=== PATIENT | male | born 1970 | race Two or more races ===

== ENCOUNTER 2017-10-20 10:27 | Inpatient (IN) | payer OTHER ==
[~2017-10-20] VITALS: Ht 182.9 cm; Wt 151.0 kg
--- NOTE | 2017-10-20 11:00 | NUR ---
WOKE UP WITH A CHEST PAIN AT 4AM, SENT BY DR AMIN, NO CHEST PAIN AT THIS MOMENT, NAD NOTED, VSS, RESP EVEN AND UNLABORED, AT BS.
--- NOTE | 2017-10-20 11:20 | NUR ---
XRAY AT BS
[2017-10-20 11:25] LABS: BASOPHILS # (AUTO) 0.1 /CMM (0.0-0.2); BASOPHILS % (AUTO) 0.8 % (0.0-2.0); EOSINOPHILS % (AUTO) 0.4 % (0.0-6.0); HEMATOCRIT 47 % (39-51); HEMOGLOBIN 16.3 g/dL (13.5-17.5); LYMPHOCYTES # (AUTO) 2.3 /CMM (0.8-4.8); LYMPHOCYTES % (AUTO) 25.7 % (20.0-44.0); MEAN CORPUSCULAR HEMOGLOBIN 31 PG (26.0-33.0); MEAN CORPUSCULAR HGB CONC 35 g/dl (31.0-36.0); MEAN CORPUSCULAR VOLUME 88 fL (80-96); MONOCYTES # (AUTO) 0.5 /CMM (0.1-1.30); MONOCYTES % (AUTO) 5.9 % (2.0-12.0); NEUTROPHILS # (AUTO) 6.1 /CMM (1.8-8.9); NEUTROPHILS % (AUTO) 67.2 % (43.0-81.0); PLATELET COUNT (AUTO) 174 /CMM (150-450); RED BLOOD CELL COUNT(AUTO) 5.35 MIL/uL (4.5-6.0)
[2017-10-20] MEDS ORDERED: ASPIRIN 81 MG TAB.CHEW PO ONE (11:30)
[2017-10-20 11:36] LABS: ALANINE AMINOTRANSFERASE 40 U/L (12-78); ALBUMIN 3.6 g/dL (3.4-5.0); ALKALINE PHOSPHATASE 61 U/L (46-116); ASPARTATE AMINOTRANSFERASE 28 U/L (15-37); BILIRUBIN,DIRECT 0.1 mg/dL (0.0-0.2); BILIRUBIN,TOTAL 0.7 mg/dL (0.2-1.0); CALCIUM, SERUM 8.8 mg/dL (8.5-10.1); CARBON DIOXIDE 24 mmol/L (21-32); CREATININE 0.8 mg/dL (0.6-1.3); GLUCOSE 100 mg/dL (74-106); TOTAL PROTEIN, SERUM 7.3 g/dL (6.4-8.2); UREA NITROGEN, BLOOD 9 mg/dL (7-18)
[2017-10-20 11:38] LABS: TROPONIN I < 0.017 ng/mL (0.00-0.056)
[2017-10-20 11:41] LABS: INR 0.94 (0.87-1.13); PROTHROMBIN TIME 9.8 SECS (9.5-12.7)
[2017-10-20] MEDS ORDERED: ASPIRIN 81 MG TAB.CHEW ONE (11:43)
[2017-10-20 11:50] LABS: CHLORIDE 106 mmol/L (98-107); POTASSIUM 4.1 mmol/L (3.5-5.1); SODIUM SERUM 139 mmol/L (136-145)
--- NOTE | 2017-10-20 12:19 | NUR ---
PAGED EPIC FOR PANEL - DR YU
--- NOTE | 2017-10-20 12:27 | NUR ---
CALLED NURSE SUP FOR TELE BED
[2017-10-20] MEDS: NITROGLYCERIN PACKET 1 GM PACKET TOP SCH ×2 (13:00→21:27)
[2017-10-20] MEDS ORDERED: HYDROCODONE/APAP 10/325MG 1 EA TABLET PO PRN (13:00)
[2017-10-20] MEDS ORDERED: TEMAZEPAM 15 MG CAPSULE PO PRN (13:00)
[2017-10-20] MEDS ORDERED: MAG HYDROX/AL HYDROX/SIMETH 30 ML UDC PO PRN (13:00)
[2017-10-20] MEDS ORDERED: ONDANSETRON HCL/PF 4 MG/2 ML VIAL IVP PRN (13:00)
[2017-10-20] MEDS ORDERED: ZOLPIDEM TARTRATE 5 MG TABLET PO PRN (13:00)
[2017-10-20] MEDS ORDERED: Z GUARD REMEDY 2 OZ OINT TP PRN (13:00)
[2017-10-20] MEDS ORDERED: MORPHINE SULFATE INJ 2 MG/ML DISP.SYRIN IV PRN (13:00)
[2017-10-20] MEDS ORDERED: MAGNESIUM HYDROXIDE 30 ML UDC PO PRN (13:00)
[2017-10-20] MEDS ORDERED: HYDROCODONE/APAP 5/325MG 1 EACH TABLET PO PRN (13:00)
--- NOTE | 2017-10-20 13:40 | NUR ---
TELE/FOOD SPECIALIST NOTE 47 YEAR OLD MALE CAME TO ER FROM PRIMARY MD OFFICE./a/O X4. ADMITTED TO TELE UNIT FOR COMPLAINT OF CHEST PAIN. VS TAKEN AND RECORDED. 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 LEFT AC IV #20 PATENT. PERFORM SKIN ASSESSMENT ON UPPER AND LOWER EXTREMITIES AND ABDOMEN. 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 CALL LIGHT WITHIN REACH. NOTIFIED DR YU FOR ADMISSION.
[2017-10-20] MEDS: ENOXAPARIN SODIUM 40 MG/0.4 ML DISP.SYRIN SQ SCH (15:38)
[2017-10-20 16:00] VITALS: BP 140/79
[2017-10-20] MEDS ORDERED: PANTOPRAZOLE 40 MG TABLET.DR PO SCH (16:30)
[2017-10-20 16:34] LABS: THYROID STIMULATING HORMONE 3.268 uIU/mL (0.358-3.74)
[2017-10-20] MEDS: CARVEDILOL 12.5 MG TABLET PO SCH ×2 (17:36→21:00)
[2017-10-20] MEDS: ATORVASTATIN 10 MG TABLET PO SCH (17:36)
--- NOTE | 2017-10-20 18:48 | NUR ---
TELE/RN CLOSING NOTE PATIENT IN BED AWAKE. A/O TO PERSON, PLACE, TIME AND SITUATION. RESPIRATION REGULAR AND UNLABORED. DENIES SOB, PAIN AT THIS TIME. IN STABLE CONDITION. LEFT AC #20 PATENT. BED LOW AND LOCKED. SIDE RAIL UP X2. CALL LIGHT WITHIN REACH. WILL ENDORSE TO GENERAL OFFICE DISPATCHER.
--- NOTE | 2017-10-20 19:35 | NUR ---
TELE/RN OPENING NOTES PT RECEIVED AWAKE, AT BEDSIDE. A/OX4. HOB ELEVATED HIGH FOWLERS POSITION. ON ROOM AIR, BREATHING EVEN AND UNLABORED. DENIES CHEST PAIN, SOB AND N/V AT THIS TIME. ON TELE MONITOR SHOWING SINUS RHYTHM WITH HR AT 65. IV TO LEFT HAND PATENT AND INTACT. CONSENT FOR LEXISCAN SIGNED AND FLAGGED IN THE CHART. PT AWARE OF PROCEDURE AND NPO STATUS POST MIDNIGHT. BED IN LOW/LOCKED POSITION WITH CALL LIGHT IN REACH. SIDE RAILS UPX2. WILL CONTINUE TO MONITOR
[2017-10-20 20:00] VITALS: BP 141/92
[2017-10-20 20:08] VITALS: BP 141/92
--- NOTE | 2017-10-20 21:34 | NUR ---
TELE/RN NOTES NOT ADMINISTERED SCHEDULED COREG, PT RECEIVED AT 1736, SCHEDULED FOR Q12H. TOO CLOSE IN TIME.
[2017-10-20 23:43] VITALS: BP 145/65
[2017-10-21] VITALS: BP 145/65
[2017-10-21 04:00] VITALS: BP 127/66
[2017-10-21 04:37] VITALS: BP 127/66
[2017-10-21] MEDS: NITROGLYCERIN PACKET 1 GM PACKET TOP SCH (05:08)
--- NOTE | 2017-10-21 06:31 | NUR ---
TELE/RN CLOSING NOTES PT ASLEEP, EASILY AROUSABLE TO NAME. A/OX4. ON ROOM AIR, BREATHING EVEN AND UNLABORED. DENIES CHEST PAIN AT THIS TIME. NO SOB OR RESPIRATORY DISTRESS NOTED. IV TO LEFT AC PATENT AND INTACT. ON TELE MONITOR SHOWING SINUS RHYTHM WITH HEART RATE AT 60. LEXISCAN FOR THIS MORNING. CONSENTS SIGNED AND FLAGGED IN THE CHART. PT REMAINED NPO POST MIDNIGHT. MADE PT COMFORTABLE. ALL NEEDS MET. BED IN LOW/LOCKED POSITION WITH CALL LIGHT IN REACH AND SIDE RAILS UPX2. WILL ENDORSE TO AM SHIFT RAMANDEEP.
[2017-10-21 07:04] VITALS: BP 106/61
[2017-10-21] MEDS ORDERED: PANTOPRAZOLE 40 MG TABLET.DR PO SCH (07:30)
[2017-10-21 07:36] LABS: BASOPHILS % (AUTO) 0.5 % (0.0-2.0); EOSINOPHILS # (AUTO) 0.1 /CMM (0.0-0.7); EOSINOPHILS % (AUTO) 0.9 % (0.0-6.0); HEMATOCRIT 48 % (39-51); HEMOGLOBIN 15.5 g/dL (13.5-17.5); LYMPHOCYTES # (AUTO) 2.3 /CMM (0.8-4.8); LYMPHOCYTES % (AUTO) 27.8 % (20.0-44.0); MEAN CORPUSCULAR HEMOGLOBIN 30 PG (26.0-33.0); MEAN CORPUSCULAR HGB CONC 33 g/dl (31.0-36.0); MEAN CORPUSCULAR VOLUME 91 fL (80-96); MONOCYTES # (AUTO) 0.5 /CMM (0.1-1.30); MONOCYTES % (AUTO) 6.4 % (2.0-12.0); NEUTROPHILS # (AUTO) 5.3 /CMM (1.8-8.9); NEUTROPHILS % (AUTO) 64.4 % (43.0-81.0); PLATELET COUNT (AUTO) 156 /CMM (150-450); RDW COEFFICIENT OF VARIATION 14.2 (11.5-15.0); RED BLOOD CELL COUNT(AUTO) 5.26 MIL/uL (4.5-6.0); WHITE BLOOD COUNT (AUTO) 8.2 K/uL (4.3-11.0)
[2017-10-21 07:52] LABS: CALCIUM, SERUM 8.7 mg/dL (8.5-10.1); CREATININE 0.9 mg/dL (0.6-1.3); MAGNESIUM 2.2 mg/dL (1.8-2.4)
[2017-10-21] MEDS ORDERED: REGADENOSON 0.4 MG/5 ML DISP.SYRIN IVP ONE (08:00)
[2017-10-21] MEDS: ACETAMINOPHEN 325 MG TABLET PO PRN ×2 (08:29→13:45)
[2017-10-21] MEDS: ATORVASTATIN 10 MG TABLET PO SCH (08:29)
[2017-10-21] MEDS ORDERED: ASPIRIN 325 MG TABLET PO SCH (09:00)
--- NOTE | 2017-10-21 09:00 | NUR ---
TO [facility] THIS AM EXCEPT FOR MEDS.
[2017-10-21] MEDS ORDERED: CARV12.52 PO (12:57)
[2017-10-21] MEDS: ENOXAPARIN SODIUM 40 MG/0.4 ML DISP.SYRIN SQ SCH (13:00)
[2017-10-21] MEDS: CARVEDILOL 12.5 MG TABLET PO SCH (13:45)
--- NOTE | 2017-10-21 14:00 | NUR ---
DR. GUADALUPE IN STAT ORDER FOR CT ANGIO.ATTEMPT X 2 BY RNS TO INSERT #20 ANGIOCATH RT. AC-WITHOUT SUCCESS.
--- NOTE | 2017-10-21 15:30 | NUR ---
LEFT FOR CT ANGIO,REPORT PER GERARDO RN -PT. HAD METOPROLOL IV.
[2017-10-21] MEDS ORDERED: METOPROLOL TARTRATE INJ 5 MG/5 ML AMPUL ONE (15:39)
[2017-10-21] MEDS ORDERED: IV NS 0.9% 250 ML IV ONE (15:49)
[2017-10-21] MEDS ORDERED: IOHEXOL-350 100 ML VIAL IV ONE (15:49)
[2017-10-21 16:00] VITALS: BP 117/67
[2017-10-21] MEDS ORDERED: NITROGLYCERIN 0.4 MG/TAB BOTTLE ONE (16:10)
--- NOTE | 2017-10-21 16:30 | NUR ---
PT. RETURNED TO ROOM,STATUS PST PROCEDURE.VS TAKEN.
--- NOTE | 2017-10-21 16:43 | NUR ---
AWAITING RESULTS FROM ANGIO.
--- NOTE | 2017-10-21 17:00 | NUR ---
MED X 2 FOR HEADACHE WITH TYLENOL 650 MG PO.
--- NOTE | 2017-10-21 17:25 | NUR ---
RECEIVED CALL FROM [facility] TO LEAVE,HEP LOCK OUT. INSTRUCTIONS GIVEN ALONG WITH PRESCRIPTION.BELONGING SHEET SIGNED.TAKEN TO LOBBY VIA W/C ACCOMPANIED BY BLOOD BANK LABORATORY PROFESSIONAL AND .
== END 2017-10-21 18:00 | disposition home or self-care (01) | DRG 154 ==
LOC: ER 10:31 → TELE 13:20 → MED 10-21 12:18
PROVIDERS: ADMIT Internal Medicine; ATTEND Internal Medicine
DX: G47.33 Obstructive sleep apnea (adult) (pediatric) (principal); I21.9 Acute myocardial infarction, unspecified; E44.0 Moderate protein-calorie malnutrition; I24.9 Acute ischemic heart disease, unspecified; E66.01 Morbid (severe) obesity due to excess calories; I10 Essential (primary) hypertension; Z83.3 Family history of diabetes mellitus; Z82.49 Family history of ischemic heart disease and other diseases of the circulatory system; K21.9 Gastro-esophageal reflux disease without esophagitis; E78.5 Hyperlipidemia, unspecified; Z98.52 Vasectomy status; G25.81 Restless legs syndrome
CPT/HCPCS: 36415; 71010-TC; 75574; 80048-TC; 80061-TC; 80076-TC; 83735-TC; 84100-TC; 84439-TC; 84443-TC; 84484-TC; 85025-TC; 85730-TC; 87081-TC; A4606; A9502; J1650; J2785; J3490; J7050; Q9967; Z7610